=== PATIENT | female | born 1950 ===

== ENCOUNTER 2018-10-22 16:14 | Emergency (ER) | payer OTHER ==
[~2018-10-22] VITALS: Ht 160 cm; Wt 69.9 kg
[~2018-10-22 16:14] MED LIST: LEVAQUIN500 MG PO; LEVAQUIN750 MG PO; ZESTRIL5 MG PO
== END 2018-10-22 22:50 | disposition home or self-care (01) ==
LOC: ER 16:14
DX: C67.8 Malignant neoplasm of overlapping sites of bladder (principal); C79.82 Secondary malignant neoplasm of genital organs; R42 Dizziness and giddiness; E86.0 Dehydration